=== PATIENT | female | born 1965 | race Caucasian/White ===

== ENCOUNTER 2017-02-21 18:28 | Emergency (ER) | payer MEDICARE, BC ==
[~2017-02-21] VITALS: Ht 152.4 cm; Wt 65.9 kg
[~2017-02-21 18:28] MED LIST: NORCO 325 MG-51 TAB PO; ULTRAM 50MG TAB50 MG PO
[2017-02-21 18:32] VITALS: BP 141/70; TEMP 98.7
[2017-02-21] MEDS ORDERED: RESTORIL 1515 MG/CAP PO (18:36)
[2017-02-21] MEDS ORDERED: NEURONTIN300 MG/CAP PO (18:36)
[2017-02-21] MEDS ORDERED: XANAX 1MG1 MG PO (18:36)
[2017-02-21 20:00] VITALS: PULSE 70
== END 2017-02-21 19:52 | disposition home or self-care (01) ==
LOC: COL.ER 18:28
DX: S69.91XA Unspecified injury of right wrist, hand and finger(s), initial encounter (principal); Z96.652 Presence of left artificial knee joint; W00.0XXA Fall on same level due to ice and snow, initial encounter

== ENCOUNTER 2017-05-11 15:59 | Emergency (ER) | payer MEDICARE, BC ==
[~2017-05-11] VITALS: Ht 152.4 cm; Wt 70.9 kg
[~2017-05-11 15:59] MED LIST changes: +NEURONTIN300 MG/CAP PO; +RESTORIL 1515 MG/CAP PO; +XANAX 1MG1 MG PO
[2017-05-11 16:01] VITALS: TEMP 99.1
[2017-05-11 16:39] LABS: BASO # 0.1 (0.0-0.2); BASO % 1.3 % (0.0-2.0); EOS # 0.2 (0.0-0.7); EOS % 4.5 % (0-4.0); GRAN # 3.2 (1.4-6.5); GRAN % 58.5 % (42.2-75.2); LYMPH # 1.5 (1.2-3.4); LYMPH % 27.3 % (20.0-51.0); MEAN CELL VOLUME 87 fl (80.0-100.0); MEAN CORPUSCULAR HEMOGLOBIN 27 pg (27.0-31.0); MEAN CORPUSCULAR HGB CONC 31 g/dl (33.0-37.0); MEAN PLATELET VOLUME 9.3 fl (7.4-10.4); MONO # 0.4 (0.1-0.6); MONO % 8.2 % (1.7-9.3); PLATELET COUNT 335 K/mm3 (130-400); RED BLOOD COUNT 4.38 M/mm3 (4.10-5.30); REDCELL DISTRIBUTION WIDTH-CV 15.6 % (11.5-14.5)
[2017-05-11 16:45] LABS: HEMOGLOBIN 11.8 g/dl (12.5-16.0)
[2017-05-11 16:49] LABS: ALANINE AMINOTRANSFERASE 38 U/L (9-52); ALBUMIN 4.6 gm/dL (3.5-5.0); ALKALINE PHOSPHATASE 106 U/L (50-136); ANION GAP 12 mmol/L (7-16); AST,SGOT 34 U/L (15-37); BILIRUBIN,TOTAL 0.8 mg/dL (0.0-1.0); BLOOD UREA NITROGEN 14 mg/dL (7-17); CALCIUM 9.3 mg/dL (8.4-10.2); CARBON DIOXIDE 27 mmol/L (22-30); CHLORIDE 102 mmol/L (98-107); GLUCOSE 164 mg/dL (74-106); LIPASE 223 U/L (23-300); POTASSIUM 3.9 mmol/L (3.4-5.0); SODIUM 141 mmol/L (137-145); TOTAL PROTEIN 7.5 gm/dL (6.4-8.2)
[2017-05-11 17:01] LABS: TROPONIN-I < 0.012 ng/mL (0.000-0.034)
[2017-05-11 21:10] VITALS: BP 131/83; PULSE 71
== END 2017-05-11 21:10 | disposition home or self-care (01) ==
LOC: COL.ER 15:59
PROVIDERS: Emergency Medicine
DX: R07.9 Chest pain, unspecified (principal); Z98.84 Bariatric surgery status; Z88.3 Allergy status to other anti-infective agents; Z88.8 Allergy status to other drugs, medicaments and biological substances
CPT/HCPCS: J1885; J2270; Q9967

== ENCOUNTER → 2017-09-19 | Outpatient (CLI) | payer MEDICARE | LOC: COL.RAD 12:58 | DX: K44.9 Diaphragmatic hernia without obstruction or gangrene (principal) ==

== ENCOUNTER 2019-01-10 17:36 | Emergency (ER) | payer OTHER ==
[~2019-01-10] VITALS: Ht 152.4 cm; Wt 72.7 kg
[2019-01-10 17:47] VITALS: BP 138/75; TEMP 98.4
[2019-01-10 21:19] VITALS: PULSE 81
== END 2019-01-10 21:20 | disposition home or self-care (01) ==
LOC: COL.ER 17:36
DX: T54.2X1A Toxic effect of corrosive acids and acid-like substances, accidental (unintentional), initial encounter (principal)

== ENCOUNTER → 2019-03-23 | Outpatient (CLI) | payer OTHER ==
[~2019-03-23] VITALS: Ht 152.4 cm; Wt 74.9 kg
[~2019-03-23] MED LIST changes: +ALDACTONE 25MG25 M1 PO; +MAG-OX 400400 MG/TAB PO; +MOBIC 7.5MG7.5 MG PO; +NEURONTIN600 MG/TAB PO; +VITAMIND3 5000 PO
[2019-03-23 08:55] VITALS: BP 129/90; PULSE 70
[2019-03-23 09:40] VITALS: BP 118/69; PULSE 55; PULSE 88
[2019-03-23 10:00] VITALS: BP 114/62; PULSE 80
[2019-03-23 10:30] VITALS: BP 110/67; PULSE 77
--- NOTE | 2019-03-23 11:30 | NUR ---
pt waited in chair for ride, up to b/r to void, no changes in assessment, discharged via w/c to car with family
== END ==
LOC: COL.RAD 08:39
DX: M47.812 Spondylosis without myelopathy or radiculopathy, cervical region (principal)
CPT/HCPCS: Q9967

== ENCOUNTER 2019-05-12 17:41 | Emergency (ER) | payer OTHER ==
[~2019-05-12] VITALS: Ht 152.4 cm; Wt 77.3 kg
[2019-05-12 18:19] VITALS: BP 134/82; TEMP 97.5
[2019-05-12 19:35] VITALS: PULSE 71
== END 2019-05-12 19:35 | disposition home or self-care (01) ==
LOC: COL.ER 17:41 → EDSTATUS 18:14 → COL.ER 19:35
DX: S50.02XA Contusion of left elbow, initial encounter (principal); S40.012A Contusion of left shoulder, initial encounter; S60.212A Contusion of left wrist, initial encounter; R40.2412 Glasgow coma scale score 13-15, at arrival to emergency department; W17.89XA Other fall from one level to another, initial encounter